=== PATIENT | female | born 1970 | race Caucasian/White ===

== ENCOUNTER → 2016-12-15 | Day surgery (SDC) | payer OTHER ==
[~2016-12-15] VITALS: Ht 172.7 cm; Wt 63.5 kg
[~2016-12-15] MED LIST: AFRIN PUMPMIST15 ML NASB; ALBUTEROL0.09 MG/A1 INH; ALBUTEROL1.25 MG/3 INH; BENADRYL ALLERG25 MG PO; CIPROFLOXACIN500 MG PO; DOXYCYCLINE HY100 M2 PO; ESCITALOPRAM10 MG PO; IMITREX50 M1; LEXAPRO10 M1 PO; LISINOPRIL5 M1 PO; PHENAZOPYRIDIN100 MG PO; PREDNISONE 20MG20 MG PO; PREDNISONE10 MG PO; PROAIR HFA8.5 GM INH; RELPAX 40MG40 MG PO; SUMATRIPTAN SU100 MG PO; TESSALON PERLE100 MG PO; TINIDAZOLE500 MG PO; VALIUM 2MG TABLE2 MG PO; VIBRAMYCIN100 MG PO; XIFAXAN550 M1 PO; ZOFRAN 4 MG TABL4 MG PO; ZOFRAN ODT4 M1 SL
--- NOTE | 2016-12-15 11:40 | ULTRASOUND REPORT ---
EXAMINATION: US PELVIS, INTRAOPERATIVE CLINICAL INFORMATION: 45-year-old female with menometrorrhagia COMPARISON: None TECHNIQUE: Intraoperative pelvic sonographic imaging was performed using a curved 5 MHz transabdominal transducer. FINDINGS: Sonographic assistance was provided to the operating room during performance of dilatation, curettage and cryoablation. The static sonographic images demonstrate placement of surgical instruments into the endometrial cavity. Please refer to the operative report regarding intraoperative findings and details from the procedures. IMPRESSION: Pelvic sonographic imaging assistance was provided to the operating room.
--- NOTE | 2016-12-15 15:03 | Operative Report ---
Operative/Inv Procedure Report Surgery Date: 12/15/16 Name of Procedure: D&C cryoablation Pre-Operative Diagnosis: menorrhagia Post-Operative Diagnosis: Same Estimated Blood Loss: less than 50ml Surgeon/Regional Facilities Manager: DOMINGUEZ CLAROS MD Anesthesia: moderate sedation Operative/Procedure Note Note: 0 patient was taken the operating placed on position after adequate anesthesia patient placed in dorsolithotomy position the vagina from dorsal fashion bladder was catheterized examination under anesthesia performed at this point a CO2 tenaculum was placed on the anterior lip of the cervix on cervix is dilated 29 Hegar to allow for sharp curettage endometrial lining 2 specimens were sent to pathology endometrial lining and THE [place] CURRETTwas used to obtain an endocervical specimen I at this point odd the bladder was catheterized I had been on filled with 250 mL normal saline under direct ultrasound guidance the her option cryoprobe was placed into the uterus on atraumatically on at this point with 8 minutes on each side cryoablation was performed the probe was heated and removed on since removed from the vagina the patient was returned spine position awakened from anesthesia and transferred recovery room awake alert counts correct Findings: Normal size uterus normal adnexa
== END ==
LOC: STS 01:49
DX: N92.0 Excessive and frequent menstruation with regular cycle (principal); N72 Inflammatory disease of cervix uteri; J45.909 Unspecified asthma, uncomplicated
CPT/HCPCS: 76998; 81025; 87086; 88305; J0131; J2250